=== PATIENT | male | born 1990 | race Caucasian/White ===

== ENCOUNTER 2024-01-11 18:20 | Emergency (ER) | payer OTHER ==
[2024-01-11 18:37] VITALS: BP 148/98; O2SAT 99
[2024-01-11 18:45] LABS: BASOPHILS # (AUTO) 0.1 10^3/uL (0.0-0.1); EOSINOPHILS # (AUTO) 0.1 10^3/uL (0.0-0.7); HGB - HEMOGLOBIN 15.5 g/dL (14.0-18.0); LYMPHOCYTES % (AUTO) 33.6 %; MEAN CORPUSCULAR HEMOGLOBIN 30.2 pg (27.0-31.0); MEAN CORPUSCULAR HGB CONC 32.3 g/dL (32.0-36.0); MEAN CORPUSCULAR VOLUME 93.4 fL (80.0-94.0); MEAN PLATELET VOLUME 9.9 fL (7.4-11.4); MONOCYTES # (AUTO) 1.2 10^3/uL (0.0-1.0); MONOCYTES % (AUTO) 13.9 %; NEUTROPHILS # (AUTO) 4.5 10^3/uL (1.5-6.6); PLT - PLATELET COUNT 295 10^3/uL (130-450); RED BLOOD COUNT 5.14 10^6/uL (4.70-6.10); RED CELL DISTRIBUTION WIDTH 15.1 % (12.0-15.0); WHITE BLOOD COUNT 8.9 x10^3/uL (4.8-10.8)
[2024-01-11 19:05] LABS: TROPONIN I HIGH SENSITIVITY 11.3 ng/L (2.3-19.7)
[2024-01-11 19:07] LABS: ALBUMIN 4.3 g/dL (3.2-5.5); ALBUMIN/GLOBULIN RATIO 1.5 (1.0-2.2); BILIRUBIN,TOTAL 0.5 mg/dL (0.2-1.0); CALCIUM 9.4 mg/dL (8.5-10.3); CREATININE 1.2 mg/dL (0.6-1.3); POTASSIUM 4.2 mmol/L (3.5-4.5); TOTAL PROTEIN 7.2 g/dL (6.4-8.9)
--- NOTE | 2024-01-11 19:14 | XRAY Report ---
PROCEDURE: Chest 1V INDICATIONS: Chest pain TECHNIQUE: One view of the chest was acquired. COMPARISON: None. FINDINGS: Surgical changes and devices: None. Lungs and pleura: No pleural effusions or pneumothorax. Lungs are clear. Mediastinum: Mediastinal contours appear normal. Heart size is normal. Bones and chest wall: No suspicious bony lesions. Overlying soft tissues appear unremarkable. IMPRESSION: No acute cardiopulmonary process. Reviewed by: Major Mccord MD on 01/11/2024 7:13 PM PDT Approved by: Major Mccord MD on 01/11/2024 7:13 PM PDT Station ID: [id number]
[2024-01-11] MEDS ORDERED: ALBUTEROL NEB 2.5 MG/3 ML INH STA (20:05)
--- NOTE | 2024-01-11 20:15 | ED Physician Documentation ---
PD HPI CHEST PAIN - Stated complaint Stated Complaint: CHEST PX - Chief complaint Chief Complaint: Cardiac - History obtained from History obtained from: Patient - History of Present Illness Timing - onset: Today Timing - onset during: Rest Timing - details: Gradual onset Pain level max: 4 Pain level now: 3 Quality: Pressure, Tightness Location: Substernal Radiation: Left upper extremity Improved by: Nothing. No: Rest Worsened by: No: Exertion, Inspiration, Eating, Movement, Palpation - Additional information Additional information: 33-year-old male presents to the emergency department with chest pain. He states that the pain has been constant for the past 10 hours. He states that occasionally he feels pain down the left arm. He states it feels tight and like it is difficult to take a deep breath at times. No pleuritic chest pain. He does not regularly smoke or vape. No fevers. No chills. No cough. No congestion. No real change with walking or exertion. No real change with eating or drinking. No rhinorrhea, cough, congestion. No abdominal pain, nausea or vomiting. Has not had similar symptoms previously. No history of blood clots. No recent travel or immobilization. Review of Systems Constitutional: denies: Fever, Chills Nose: denies: Rhinorrhea / runny nose, Congestion Cardiac: denies: Palpitations, Calf pain Respiratory: denies: Cough, Hemoptysis, Wheezing GI: denies: Abdominal Pain, Nausea, Vomiting, Diarrhea : denies: Dysuria, Frequency, Hesitancy Skin: denies: Rash Musculoskeletal: denies: Neck pain, Back pain PD PAST MEDICAL HISTORY - Past Medical History Past Medical History: No - Past Surgical History Past Surgical History: No - Allergies Allergies/Adverse Reactions: Allergies Allergy/AdvReac Type Severity Reaction Status Date / Time clarithromycin [From Biaxin] Allergy Anaphylaxis Verified 01/11/24 18:30 - Social History Does the pt smoke?: No Smoking Status: Never smoker Does the pt drink ETOH?: Yes Does the pt have substance abuse?: No Substance Use and Type: Marijuana - Immunizations Immunizations are current?: Yes PD ED PE NORMAL - Vitals Vital signs reviewed: Yes - General General: Alert and oriented X 3, No acute distress - HEENT HEENT: PERRL, Moist mucous membranes - Neck Neck: Supple, no meningeal sign - Cardiac Cardiac: RRR, No murmur, Strong equal pulses - Respiratory Respiratory: No respiratory distress, Clear bilaterally - Abdomen Abdomen: Soft, Non tender, Non distended - Back Back: No CVA TTP, No spinal TTP - Derm Derm: Warm and dry - Extremities Extremities: No edema, No calf tenderness / cord - Neuro Neuro: Alert and oriented X 3 - Psych Psych: Normal mood, Normal affect Results - Vitals Vitals: Vital Signs - 24 hr 01/11/24 18:30 Temperature 36.1 C L Heart Rate 62 Respiratory 16 Rate Blood Pressure 148/98 H O2 Saturation 99 - EKG (time done) 1833 EKG releavant findings:: EKG personally interpreted by author of this note. Relevant findings are: Rate: Rate (enter#) (63) Rhythm: NSR [place]: Normal Intervals: Normal CO (borderline short) QRS: LVH Ischemia: ST elevation c/w repol - Labs Labs: Laboratory Tests 01/11/24 01/11/24 18:42 18:42 WBC 8.9 RBC 5.14 Hgb 15.5 Hct 48.0 MCV 93.4 MCH 30.2 MCHC 32.3 RDW 15.1 H Plt Count 295 MPV 9.9 Neut # (Auto) 4.5 Lymph # (Auto) 3.0 Andrew # (Auto) 1.2 H Eos # (Auto) 0.1 Baso # (Auto) 0.1 Absolute Nucleated RBC 0.00 Nucleated RBC % 0.0 Sodium 138 Potassium 4.2 Chloride 104 Carbon Dioxide 28 Anion Gap 6.0 BUN 13 Creatinine 1.2 Estimated GFR (MDRD) 69 L Glucose 97 Calcium 9.4 Total Bilirubin 0.5 AST 21 ALT 28 Alkaline Phosphatase 37 L Troponin I High Sens 11.3 Total Protein 7.2 Albumin 4.3 Globulin 2.9 Albumin/Globulin Ratio 1.5 Lipase 22 - Rads (name of study) cxr Relevant Findings:: Final report received, See rad report PD Medical Decision Making - ED course Complexity details: reviewed results, re-evaluated patient, considered dif ferential (No ST elevation ME, no aortic dissection, no PE, no tension pneumothorax, no aortic aneurysm), d/w patient ED course: Patient with atypical chest pain. No acute findings on chest x-ray, EKG, laboratory testing. Negative high sensitive troponin after greater than 8 hours of symptoms. Do not see an indication for second troponin at this time. Patient does not want to try a nebulizer treatment to see if this helps his tightness and feeling that he cannot take a full breath. Declines any further workup at this time. He states that he will follow-up with his doctor for further care. Patient counseled regarding signs and symptoms for which I believe and urgent re-evaluation would be necessary. Patient with good understanding of and agreement to plan and is comfortable going home at this time This document was made in part using voice recognition software. While efforts are made to proofread this document, sound alike and grammatical errors may oc cur. Departure - Departure Disposition: Home, Self Care Clinical Impression: Chest pain Qualifiers: Chest pain type: unspecified Qualified Code(s): R07.9 - Chest pain, unspecified Condition: Good Instructions: ED Chest Pain Atypical Unkn Cause Follow-Up: CALOS RAMACHANDRAN ARNP [Primary Care Provider] - Comments: Your chest x-ray, EKG and laboratory testing did not show any acute abnormalities today. There is no evidence of heart attack today. Please follow-up with your doctor for further care. It is recommended that you have a cardiac stress test. You can use Motrin or Tylenol as needed for pain. We did discuss a breathing treatment to see if this would help open your lungs, but you have declined this tonight. Please return if you worsen. Forms: PCP List Discharge Date/Time: 01/11/24 20:22
== END 2024-01-11 20:22 | disposition home or self-care (01) ==
LOC: ED 18:20
DX: R07.89 Other chest pain (principal)
CPT/HCPCS: 36415; 80053; 83690; 84484; 85025; 93005; 99284